=== PATIENT | male | born 1955 | race Caucasian/White ===

== ENCOUNTER 2017-10-06 05:12 | Inpatient (IN) | payer MEDICAID ==
[2017-10-06 05:12] VITALS: BMI 34.1
[2017-10-06] MEDS ORDERED: Nitroglycerin 50mg in D5W 50 MG/250 ML BOTTLE IV SCH (05:20)
--- NOTE | 2017-10-06 05:27 | C.PDOC ---
History Of Present Illness 62 year old male presents to the ER as a tranfer from [place] for admission. Patient with a Hx of pulmonary edema and ESRD. Patient on tridil drip on arrival , no longer dyspneic, no chest pain, not on bipap. Chief Complaint (Nursing): Shortness Of Breath History Per: Patient History/Exam Limitations: no limitations Onset/Duration Of Symptoms: Hrs Current Symptoms Are (Timing): Still Present Associated Symptoms: denies: Chest Pain, Other (Dyspnea) Recent travel outside of the [place]: No Past Medical History Reviewed: Historical Data, Nursing Documentation, Vital Signs Vital Signs: Last Vital Signs Temp 97.8 F 10/06/17 05:23 Pulse 77 10/06/17 05:37 Resp 20 10/06/17 05:37 BP 142/79 10/06/17 05:37 Pulse Ox 93 L 10/06/17 05:37 - Medical History PMH: Anemia, Arthritis (b/l knee), Benign Prostatic Hyperplasia, Cardia Arrhythmia, CHF, HTN, Hypercholesterolemia, Hyperlipidemia, Peripheral Edema, End Stage Renal Disease, Chronic Kidney Disease Surgical History: Coronary Stent (x2) - [facility] (04/23/17) ASSISTANCE WITH RESPIRATORY VENTILATION, <24 HRS, CPAP (10/09/16) DIALYSIS ARTERIOVENOSTOM (08/11/14) HEMODIALYSIS (12/05/14) INSERTION OF ENDOTRACHEAL AIRWAY INTO TRACHEA, VIA OPENING (11/28/16) PERFORMANCE OF URINARY FILTRATION, MULTIPLE (11/28/16) RESPIRATORY VENTILATION, LESS THAN 24 CONSECUTIVE HOURS (11/28/16) [facility] D[facility]UNT (12/05/14) VENOUS CATHETERIZATION FOR RENAL DIALYSIS (12/05/14) Family History: States: Unknown Family Hx - Social History Hx Alcohol Use: No Hx Substance Use: No - Immunization History Hx Tetanus Toxoid Vaccination: No Hx Influenza Vaccination: No Hx Pneumococcal Vaccination: No Review Of Systems Constitutional: Negative for: Fever, Chills Cardiovascular: Negative for: Chest Pain Respiratory: Negative for: Cough, Shortness of Breath Gastrointestinal: Negative for: Nausea, Vomiting, Abdominal Pain Skin: Negative for: Rash Neurological: Negative for: Weakness, Numbness Physical Exam - Physical Exam Appears: Non-toxic Skin: Normal Color, Warm, Dry Head: Atraumatic, Normacephalic Eye(s): bilateral: Normal Inspection Oral Mucosa: Moist Throat: Normal Neck: Normal, Supple Chest: Symmetrical, No Tenderness Cardiovascular: Rhythm Regular Respiratory: Rales (Occasional basilar), No Rhonchi, No Wheezing Gastrointestinal/Abdominal: Soft, No Tenderness Back: No CVA Tenderness Extremity: Normal ROM (x4) Neurological/Psych: Oriented x3, Normal Speech ED Course And Treatment Progress Note: Dr. Diaz, patient's PCP, was notified and will admit patient to her service. Disposition Discussed With Dr.: Demetrius Parkinson Doctor Will See Patient In The: Hospital Counseled Patient/Family Regarding: Diagnosis - Disposition Disposition: HOSPITALIZED Disposition Time: 05:26 Condition: GUARDED - Clinical Impression Clinical Impression: ESRD (end stage renal disease) on dialysis, Pulmonary edema - Scribe Statement The provider has reviewed the documentation as recorded by the Scribe Ramu Booth All medical record entries made by the Scribe were at my direction and personally dictated by me. I have reviewed the chart and agree that the record accurately reflects my personal performance of the history, physical exam, medical decision making, and the department course for this patient. I have also personally directed, reviewed, and agree with the discharge instructions and disposition.
[2017-10-06] MEDS: (Novolin R) Insulin Human Regular 100 units/ml vial SC SCH ×5 (06:46→22:10)
--- NOTE | 2017-10-06 11:17 | CP.PCM.HP ---
History of Present Illness - History of Present Illness History of Present Illness: pt transferedb from [place] to presented with dificulty breathing body swallen pauldeatous allover in ht failiure geting dialysis now Present on Admission - Present on Admission Any Indicators Present on Admission: No Past Patient History - Infectious Disease Hx of Infectious Diseases: None - Past Medical History & Family History Past Medical History?: Yes - Past Social History Smoking Status: Never Smoked - CARDIAC Hx Cardia Arrhythmia: Yes Hx Congestive Heart Failure: Yes Hx Hypercholesterolemia: Yes Hx Hypertension: Yes Hx Peripheral Edema: Yes - PULMONARY Hx Respiratory Disorders: No - NEUROLOGICAL Hx Neurological Disorder: No - HEENT Hx HEENT Problems: No - RENAL Hx Chronic Kidney Disease: Yes - ENDOCRINE/METABOLIC Hx Diabetes Mellitus Type 1: Yes - HEMATOLOGICAL/ONCOLOGICAL Hx Anemia: Yes - INTEGUMENTARY Hx Dermatological Problems: Yes Other/Comment: 8=7-17 LEFT GLUTEAL FOLD HAS A 0.5CM ROUND .CRUSTED WOUND. DRY. LEFT UPPER ARM SHUNT.LEFT DELTOID WITH SKIN DISCOLORATION. - MUSCULOSKELETAL/RHEUMATOLOGICAL Hx Arthritis: Yes (b/l knee) - GASTROINTESTINAL Hx Gastrointestinal Disorders: Yes (CONSTIPATION.) - GENITOURINARY/GYNECOLOGICAL Hx Genitourinary Disorders: (oliguria) Other/Comment: dialysis m/w/f - PSYCHIATRIC Hx Substance Use: No - SURGICAL HISTORY Hx Coronary Stent: Yes (x2) - ANESTHESIA Hx Anesthesia: Yes Hx Anesthesia Reactions: No Hx Malignant Hyperthermia: No Meds Allergies/Adverse Reactions: Allergies Allergy/AdvReac Type Severity Reaction Status Date / Time No Known Allergies Allergy Verified 10/06/17 05:23 Physical Exam - Constitutional Appears: Non-toxic, In Acute Distress - Head Exam Head Exam: ATRAUMATIC - Eye Exam Eye Exam: Normal appearance Pupil Exam: NORMAL ACCOMODATION - ENT Exam ENT Exam: Mucous Membranes Moist - Neck Exam Neck exam: Positive for: Normal Inspection - Respiratory Exam Respiratory Exam: Accessory Muscle Use, Decreased Breath Sounds, Rales - Cardiovascular Exam Cardiovascular Exam: Tachycardia - GI/Abdominal Exam GI & Abdominal Exam: Normal Bowel Sounds - Extremities Exam Extremities exam: Positive for: full ROM, pedal edema - Back Exam Back exam: NORMAL INSPECTION - Neurological Exam Neurological exam: CN II-XII Intact, Normal Gait, Oriented x3 - Psychiatric Exam Psychiatric exam: Normal Mood - Skin Skin Exam: Diaphoretic, Pallor Results - Vital Signs Recent Vital Signs: Last Vital Signs Temp 97.5 F L 10/06/17 08:16 Pulse 68 10/06/17 11:07 Resp 20 10/06/17 11:07 BP 153/80 H 10/06/17 11:07 Pulse Ox 100 10/06/17 10:14 - Labs Labs: Laboratory Results - last 24 hr 10/06/17 05:23 POC Glucose (mg/dL) 352 H Assessment & Plan - Assessment and Plan (Free Text) Assessment: AC EX CHF COPD ESRF ANEAMIA Plan: PER ORDERS - Date & Time Date: 10/06/17 Time: 11:18
--- NOTE | 2017-10-06 12:42 | CP.PCM.CON ---
History of Present Illness - History of Present Illness History of Present Illness: Nephrology Consultation Note: Assessment: critical CHF exacerbation with fluid overload and pneumonia hyperglycemia Diabetic chronic Kidney Disease (E11.22) End stage renal disease (N18.6) dependence on hemodialysis (Z99.2) (MWF) via left AVF Anemia (D64.9), Hyperphosphatemia (E83.39), Secondary Hyperparathyroidism (E21.1 ), HTN (I12.0), DM, CAD s/p CABG, Overweight, CHF with L EF low Plan: Will plan for HD today as MWF schedule. Continue with Nephrovite 1 tab/day. next routine HD tomorrow. last Hb 12.3 hence No KISHAN with HD Continue with phos binders check phos level BP control with meds as ordered. will benefit from ACEI or ARB. will start low dose losartan 25 mg/day. Glycemic control, Dialysis consistent diet, oral fluid and salt restriction Further work up/management as per primary team Dose meds/antibiotics for ESRD status. Avoid fleets enema/magnesium based laxatives. pt needs weight loss, lifestyle modifications, exercise, pt to limit fluid intake. Thanks for allowing me to participate in care of your patient. Please call if any Qs. Dr Renan De Leon Office: [phone] Chief Complaint; SOB reason for consult: ESRD HPI: Pt is a 61 y/o M with hx of ESRD on hemodialysis (MWF/sat) via AVF @ [facility], chronic anemia, hyperphosphatemia, secondary hyperparathyroidism, Diabetes Mellitus, hypertension, CHF presented with complaints of shortness of breath x 1 day and being admitted for CHF exacerbation with pneumonia now feels better at end of HD Subjective: feels better. SOB better. denies nausea/vomitting, chest pain. c/o dry cough. rest all other neg Physical Examination: General Appearance: in no acute respiratory distress. obese appearing male. comfortable coperative Vitals reviewed and noted as below Head; Atraumatic, normocephalic ENT: no ulcer, thrush, rash EYES: Pupils are equal, round and reactive to light accommodation. Eye muscles and extraocular movement intact. Sclera is anicteric. Neck; supple no lymphadenopathy, no thyromegaly or bruit Lungs: Breath sounds bilateral + no wheezing. bilateral bibasal crackles+ Heart: Normal rate. s1s2 normal. No rub or gallop. CABG scar + Extremities: 1+ edema. No varicose veins Neurological: Patient is awake, alert oriented x 3 at this time. no focal defifict Skin: Warm and dry. Normal turgor. No rash. Palpitation: Normal elasticity for age Abdomen: Abdomen is soft. Bowel sounds +. There is no abdominal tenderness, no guarding/rigidity or organomegaly. abdomen is distended, obese appearing Psych: has normal affect and mood. MSK: no joint tenderness or swelling. Digits and nails normal, no deformity : kidney or bladder not palpable Access: AVF Labs/imaging reviewed. Past medical history, past surgical history, family history, social history, allergy reviewed and noted as below Family Hx: no hx of CKD. Non contributory Past Patient History - Infectious Disease Hx of Infectious Diseases: None - Past Medical History & Family History Past Medical History?: Yes - Past Social History Smoking Status: Never Smoked - CARDIAC Hx Cardia Arrhythmia: Yes Hx Congestive Heart Failure: Yes Hx Hypercholesterolemia: Yes Hx Hypertension: Yes Hx Peripheral Edema: Yes - PULMONARY Hx Respiratory Disorders: No - NEUROLOGICAL Hx Neurological Disorder: No - HEENT Hx HEENT Problems: No - RENAL Hx Chronic Kidney Disease: Yes - ENDOCRINE/METABOLIC Hx Diabetes Mellitus Type 1: Yes - HEMATOLOGICAL/ONCOLOGICAL Hx Anemia: Yes - INTEGUMENTARY Hx Dermatological Problems: Yes Other/Comment: 8=7-17 LEFT GLUTEAL FOLD HAS A 0.5CM ROUND .CRUSTED WOUND. DRY. LEFT UPPER ARM SHUNT.LEFT DELTOID WITH SKIN DISCOLORATION. - MUSCULOSKELETAL/RHEUMATOLOGICAL Hx Arthritis: Yes (b/l knee) - GASTROINTESTINAL Hx Gastrointestinal Disorders: Yes (CONSTIPATION.) - GENITOURINARY/GYNECOLOGICAL Hx Genitourinary Disorders: (oliguria) Other/Comment: dialysis m/w/f - PSYCHIATRIC Hx Substance Use: No - SURGICAL HISTORY Hx Coronary Stent: Yes (x2) - ANESTHESIA Hx Anesthesia: Yes Hx Anesthesia Reactions: No Hx Malignant Hyperthermia: No Meds Allergies/Adverse Reactions: Allergies Allergy/AdvReac Type Severity Reaction Status Date / Time No Known Allergies Allergy Verified 10/06/17 05:23 - Medications Medications: Current Medications Insulin Human Regular (Novolin R) 0 unit SC ACHS [facility] PRN Reason: Protocol Last Admin: 10/06/17 11:52 Dose: Not Given Metoprolol Tartrate (Lopressor) 25 mg PO BID [facility] Last Admin: 10/06/17 11:37 Dose: Not Given Results - Vital Signs Recent Vital Signs: Last Vital Signs Temp 97.4 F L 10/06/17 11:46 Pulse 72 10/06/17 12:03 Resp 20 10/06/17 12:03 BP 135/76 10/06/17 12:03 Pulse Ox 100 10/06/17 12:03 - Labs Labs: Laboratory Results - last 24 hr 10/06/17 10/06/17 05:23 11:50 POC Glucose (mg/dL) 352 H 180 H
[2017-10-06] MEDS: cefTRIAXone IV 1 gm in Dextros 50 ML IVPB SCH (18:36)
[2017-10-06] MEDS ORDERED: (Novolin R) Insulin Human Regular 100 units/ml vial SC ONE (23:00)
[2017-10-07] MEDS: Albuterol-Ipratrop 3 mg / 0.5 (3 ml) UD INH SCH ×4 (02:57→20:11)
[2017-10-07] MEDS: (Novolin R) Insulin Human Regular 100 units/ml vial SC SCH ×4 (08:11→22:44)
[2017-10-07] MEDS: Multivitamin Vitamin B Complex (Nephro-Vite) Tab PO SCH (08:26)
--- NOTE | 2017-10-07 09:15 | CP.PCM.PN ---
Subjective - Date & Time of Evaluation Date of Evaluation: 10/07/17 Time of Evaluation: 09:14 - Subjective Subjective: Nephrology Consultation Note: Assessment:Stable CHF exacerbation with fluid overload and pneumonia hyperglycemia Diabetic chronic Kidney Disease (E11.22) End stage renal disease (N18.6) dependence on hemodialysis (Z99.2) (MWF) via left AVF Anemia (D64.9), Hyperphosphatemia (E83.39), Secondary Hyperparathyroidism (E21.1 ), HTN (I12.0), DM, CAD s/p CABG, Overweight, CHF with L EF low Plan: Will plan for HD today as /monday schedule. Continue with Nephrovite 1 tab/ day. last Hb 12.3 hence No KISHAN with HD Continue with phos binders check phos level BP control with meds as ordered. will benefit from ACEI or ARB. will start low dose losartan 25 mg/day. Glycemic control, Dialysis consistent diet, oral fluid and salt restriction Further work up/management as per primary team Dose meds/antibiotics for ESRD status. Avoid fleets enema/magnesium based laxatives. pt needs weight loss, lifestyle modifications, exercise, pt to limit fluid intake. Thanks for allowing me to participate in care of your patient. Please call if any Qs. d/w team Dr Renan De Leon Office: [phone] Chief Complaint; SOB reason for consult: ESRD HPI: Pt is a 61 y/o M with hx of ESRD on hemodialysis (MWF/mon) via AVF @ [facility], chronic anemia, hyperphosphatemia, secondary hyperparathyroidism, Diabetes Mellitus, hypertension, CHF presented with complaints of shortness of breath x 1 day and being admitted for CHF exacerbation with pneumonia now feels better at end of HD Subjective: feels better. SOB better. denies nausea/vomitting, chest pain. c/o dry cough. rest all other neg Physical Examination: General Appearance: in no acute respiratory distress. obese appearing male. comfortable coperative Vitals reviewed and noted as below Head; Atraumatic, normocephalic ENT: no ulcer, thrush, rash EYES: Pupils are equal, round and reactive to light accommodation. Eye muscles and extraocular movement intact. Sclera is anicteric. Neck; supple no lymphadenopathy, no thyromegaly or bruit Lungs: Breath sounds bilateral + no wheezing. bilateral bibasal crackles+ improved Heart: Normal rate. s1s2 normal. No rub or gallop. CABG scar + Extremities: no edema. No varicose veins Neurological: Patient is awake, alert oriented x 3 at this time. no focal defifict Skin: Warm and dry. Normal turgor. No rash. Palpitation: Normal elasticity for age Abdomen: Abdomen is soft. Bowel sounds +. There is no abdominal tenderness, no guarding/rigidity or organomegaly. abdomen is distended, obese appearing Psych: has normal affect and mood. MSK: no joint tenderness or swelling. Digits and nails normal, no deformity : kidney or bladder not palpable Access: AVF Labs/imaging reviewed. Past medical history, past surgical history, family history, social history, allergy reviewed and noted as below Family Hx: no hx of CKD. Non contributory Objective - Vital Signs/Intake and Output Vital Signs (last 24 hours): Temp Pulse Resp BP Pulse Ox 97.5 F L 79 18 123/74 96 10/07/17 07:00 10/07/17 07:00 10/07/17 07:00 10/07/17 07:00 10/07/17 07:00 Intake and Output: 10/07/17 10/07/17 06:59 18:59 Intake Total 210 Output Total 0 Balance 210 - Medications Medications: Current Medications Albuterol/Ipratropium (Duoneb 3 Mg/0.5 Mg (3 Ml) Ud) 3 ml INH RQ6 [facility] Last Admin: 10/07/17 08:45 Dose: 3 ml Aspirin (Ecotrin) 81 mg PO DAILY [facility] Azithromycin (Zithromax) 250 mg PO QPM [facility] PRN Reason: Protocol Stop: 10/11/17 18:01 Last Admin: 10/06/17 18:36 Dose: 250 mg Calcium Acetate (Phoslo) 667 mg PO TIDAC [facility] Last Admin: 10/07/17 08:26 Dose: 667 mg Clopidogrel Bisulfate (Plavix) 75 mg PO DAILY [facility] Furosemide (Lasix) 40 mg PO DAILY [facility] Glimepiride (Amaryl) 4 mg PO BID [facility] Heparin Sodium (Porcine) (Heparin) 2,000 units IVP MWF [facility] Heparin Sodium (Porcine) (Heparin) 2,000 units IVP ONCE ONE Stop: 10/07/17 10:01 Home Med (Atorvastatin [Lipitor]) 1 tab PO HS [facility] Ceftriaxone Sodium (Rocephin Iv 1 Gm Duplex) 50 mls @ 100 mls/hr IVPB QPM [facility] PRN Reason: Protocol Stop: 10/13/17 18:01 Last Admin: 10/06/17 18:36 Dose: 100 mls/hr Insulin Human Regular (Novolin R) 0 unit SC ACHS [facility] PRN Reason: Protocol Last Admin: 10/07/17 08:11 Dose: Not Given Losartan Potassium (Cozaar) 25 mg PO QPM [facility] Last Admin: 10/06/17 17:23 Dose: 25 mg Metoprolol Tartrate (Lopressor) 25 mg PO BID [facility] Last Admin: 10/06/17 17:23 Dose: 25 mg Vitamin B Complex/Vit C/Folic Acid (Nephro-Adonis) 1 tab PO 0800 [facility] Last Admin: 10/07/17 08:26 Dose: 1 tab
--- NOTE | 2017-10-07 12:11 | CP.PCM.PN ---
Subjective - Date & Time of Evaluation Date of Evaluation: 10/07/17 Time of Evaluation: 12:08 - Subjective Subjective: cough chest congesion less sob having dialysis Objective - Vital Signs/Intake and Output Vital Signs (last 24 hours): Temp Pulse Resp BP Pulse Ox 97.8 F 81 16 114/65 96 10/07/17 09:20 10/07/17 11:30 10/07/17 11:30 10/07/17 11:30 10/07/17 11:30 Intake and Output: 10/07/17 10/07/17 06:59 18:59 Intake Total 210 Output Total 0 Balance 210 - Medications Medications: Current Medications Albuterol/Ipratropium (Duoneb 3 Mg/0.5 Mg (3 Ml) Ud) 3 ml INH RQ6 [facility] Last Admin: 10/07/17 08:45 Dose: 3 ml Aspirin (Ecotrin) 81 mg PO DAILY [facility] Azithromycin (Zithromax) 250 mg PO QPM [facility] PRN Reason: Protocol Stop: 10/11/17 18:01 Last Admin: 10/06/17 18:36 Dose: 250 mg Calcium Acetate (Phoslo) 667 mg PO TIDAC [facility] Last Admin: 10/07/17 08:26 Dose: 667 mg Clopidogrel Bisulfate (Plavix) 75 mg PO DAILY [facility] Furosemide (Lasix) 40 mg PO DAILY [facility] Glimepiride (Amaryl) 4 mg PO BID [facility] Heparin Sodium (Porcine) (Heparin) 2,000 units IVP MWF [facility] Home Med (Atorvastatin [Lipitor]) 1 tab PO HS [facility] Ceftriaxone Sodium (Rocephin Iv 1 Gm Duplex) 50 mls @ 100 mls/hr IVPB QPM [facility] PRN Reason: Protocol Stop: 10/13/17 18:01 Last Admin: 10/06/17 18:36 Dose: 100 mls/hr Insulin Human Regular (Novolin R) 0 unit SC ACHS [facility] PRN Reason: Protocol Last Admin: 10/07/17 08:11 Dose: Not Given Losartan Potassium (Cozaar) 25 mg PO QPM [facility] Last Admin: 10/06/17 17:23 Dose: 25 mg Metoprolol Tartrate (Lopressor) 25 mg PO BID [facility] Last Admin: 10/06/17 17:23 Dose: 25 mg Vitamin B Complex/Vit C/Folic Acid (Nephro-Adonis) 1 tab PO 0800 [facility] Last Admin: 10/07/17 08:26 Dose: 1 tab - Constitutional Appears: Non-toxic - Head Exam Head Exam: NORMAL INSPECTION - Eye Exam Eye Exam: Normal appearance Pupil Exam: NORMAL ACCOMODATION - ENT Exam ENT Exam: Mucous Membranes Moist - Neck Exam Neck Exam: Normal Inspection - Respiratory Exam Respiratory Exam: Decreased Breath Sounds, Rales - Cardiovascular Exam Cardiovascular Exam: REGULAR RHYTHM - GI/Abdominal Exam GI & Abdominal Exam: Normal Bowel Sounds - Skin Skin Exam: Normal Color Assessment and Plan - Assessment and Plan (Free Text) Assessment: CHF AC BRONCHITIS DM Plan: CONT PER ORDERS
[2017-10-07] MEDS: cefTRIAXone IV 1 gm in Dextros 50 ML IVPB SCH (17:03)
[2017-10-08] MEDS ORDERED: Insulin Detemir 100 units/ml Vial (Levemir) SC STA (00:47)
[2017-10-08] MEDS: Albuterol-Ipratrop 3 mg / 0.5 (3 ml) UD INH SCH ×4 (01:17→19:46)
[2017-10-08 08:01] LABS: HEPATITIS B SURFACE AG Negative (NEGATIVE)
[2017-10-08] MEDS ORDERED: Bisacodyl 5mg EC Tab PO ONE (08:09)
[2017-10-08 08:18] LABS: HEPATITIS C ANTIBODY NEGATIVE (NEGATIVE)
[2017-10-08] MEDS: Multivitamin Vitamin B Complex (Nephro-Vite) Tab PO SCH (08:22)
[2017-10-08] MEDS: (Novolin R) Insulin Human Regular 100 units/ml vial SC SCH ×4 (08:24→21:45)
[2017-10-08 08:39] LABS: BASO # 0.1 K/uL (0.0-0.2); BASO % 1.1 % (0.0-2.0); EOS # 0.1 K/uL (0.0-0.7); EOS % 1.2 % (0.0-4.0); HEMOGLOBIN 11.8 g/dL (12.0-18.0); LYMPH # 1.8 K/uL (1.0-4.3); LYMPH % 25.6 % (20.0-40.0); MEAN CORPUSCULAR HEMOGLOBIN 28.8 pg (27.0-31.0); MEAN CORPUSCULAR HGB CONC 32.2 g/dL (33.0-37.0); MEAN PLATELET VOLUME 8.5 fL (7.2-11.7); MONO # 0.6 K/uL (0.0-0.8); MONO % 8.1 % (0.0-10.0); NEUT # 4.5 K/uL (1.8-7.0); NRBC % 0.2 % (0.0-2.0); RBC 4.09 Mil/uL (4.40-5.90); RED CELL DISTRIBUTION WIDTH 19.9 % (11.5-14.5); WHITE BLOOD COUNT 7.1 K/uL (4.8-10.8)
[2017-10-08 08:44] LABS: ALB/GLOB RATIO 1.3 (1.0-2.1); ALBUMIN 4.7 g/dL (3.5-5.0); CALCIUM 8.8 mg/dl (8.6-10.4); MEAN CELL VOLUME 89.5 fL (80.0-94.0)
[2017-10-08 09:06] LABS: FREE T4 1.59 ng/dL (0.78-2.19)
--- NOTE | 2017-10-08 09:43 | RAD ---
HISTORY: pneumonia COMPARISON: 11/15/2015 TECHNIQUE: Chest PA and lateral FINDINGS: LUNGS: No active pulmonary disease. PLEURA: No significant pleural effusion identified. No pneumothorax apparent. CARDIOVASCULAR: Cardiomegaly. No evidence of acute, significant cardiovascular disease. OSSEOUS STRUCTURES: No significant abnormalities. VISUALIZED UPPER ABDOMEN: Normal. OTHER FINDINGS: None. IMPRESSION: No active disease. No significant interval change compared to the prior examination(s).
[2017-10-08] MEDS ORDERED: Pneumococcal 23-Valent Vaccine IM ONE (10:00)
--- NOTE | 2017-10-08 10:27 | CP.PCM.PN ---
Subjective - Date & Time of Evaluation Date of Evaluation: 10/08/17 Time of Evaluation: 10:24 - Subjective Subjective: lower abd pain constipation Objective - Vital Signs/Intake and Output Vital Signs (last 24 hours): Temp Pulse Resp BP Pulse Ox 98 F 94 H 18 126/71 95 10/08/17 08:05 10/08/17 09:21 10/08/17 08:05 10/08/17 09:22 10/08/17 08:05 Intake and Output: 10/08/17 10/08/17 06:59 18:59 Intake Total 100 Balance 100 - Medications Medications: Current Medications Albuterol/Ipratropium (Duoneb 3 Mg/0.5 Mg (3 Ml) Ud) 3 ml INH RQ6 [facility] Last Admin: 10/08/17 01:17 Dose: Not Given Aspirin (Ecotrin) 81 mg PO DAILY [facility] Last Admin: 10/08/17 09:22 Dose: 81 mg Azithromycin (Zithromax) 250 mg PO QPM [facility] PRN Reason: Protocol Stop: 10/11/17 18:01 Last Admin: 10/07/17 17:02 Dose: 250 mg Calcium Acetate (Phoslo) 667 mg PO TIDAC [facility] Last Admin: 10/08/17 08:22 Dose: 667 mg Clopidogrel Bisulfate (Plavix) 75 mg PO DAILY [facility] Last Admin: 10/08/17 09:22 Dose: 75 mg Furosemide (Lasix) 40 mg PO DAILY [facility] Last Admin: 10/08/17 09:22 Dose: 40 mg Glimepiride (Amaryl) 4 mg PO BID [facility] Last Admin: 10/08/17 09:22 Dose: 4 mg Heparin Sodium (Porcine) (Heparin) 2,000 units IVP MWF [facility] Ceftriaxone Sodium (Rocephin Iv 1 Gm Duplex) 50 mls @ 100 mls/hr IVPB QPM [facility] PRN Reason: Protocol Stop: 10/13/17 18:01 Last Admin: 10/07/17 17:03 Dose: 100 mls/hr Insulin Human Regular (Novolin R) 0 unit SC ACHS [facility] PRN Reason: Protocol Last Admin: 10/08/17 08:24 Dose: 4 units Losartan Potassium (Cozaar) 25 mg PO QPM [facility] Last Admin: 10/07/17 17:03 Dose: 25 mg Metoprolol Tartrate (Lopressor) 25 mg PO BID [facility] Last Admin: 10/08/17 09:22 Dose: 25 mg Rosuvastatin Calcium (Crestor) 20 mg PO HS [facility] Last Admin: 10/07/17 22:45 Dose: 20 mg Vitamin B Complex/Vit C/Folic Acid (Nephro-Adonis) 1 tab PO 0800 [facility] Last Admin: 10/08/17 08:22 Dose: 1 tab - Labs Labs: 10/08/17 08:24 10/08/17 08:24 - Constitutional Appears: Non-toxic - Head Exam Head Exam: NORMAL INSPECTION - Eye Exam Eye Exam: Normal appearance Pupil Exam: NORMAL ACCOMODATION - ENT Exam ENT Exam: Mucous Membranes Moist - Neck Exam Neck Exam: Full ROM - Respiratory Exam Respiratory Exam: NORMAL BREATHING PATTERN - Cardiovascular Exam Cardiovascular Exam: REGULAR RHYTHM - GI/Abdominal Exam GI & Abdominal Exam: Tenderness, Normal Bowel Sounds Additional comments: lower abd tender - Exam External exam: NORMAL EXTERNAL EXAM - Extremities Exam Extremities Exam: Full ROM - Back Exam Back Exam: NORMAL INSPECTION - Neurological Exam Neurological Exam: Oriented x3 - Psychiatric Exam Psychiatric exam: Normal Mood - Skin Skin Exam: Dry, Normal Color Assessment and Plan - Assessment and Plan (Free Text) Assessment: abd pain constipation chf esrf dm uncontroled Plan: will do ct abd inc insulin
[2017-10-08] MEDS ORDERED: Iohexol 240 (50 ml) PO ONE (11:15)
--- NOTE | 2017-10-08 14:29 | CP.PCM.PN ---
Subjective - Date & Time of Evaluation Date of Evaluation: 10/08/17 Time of Evaluation: 14:28 - Subjective Subjective: Nephrology Consultation Note: Assessment:Stable CHF exacerbation with fluid overload and ? pneumonia hyperglycemia Diabetic chronic Kidney Disease (E11.22) End stage renal disease (N18.6) dependence on hemodialysis (Z99.2) (MWF) via left AVF Anemia (D64.9), Hyperphosphatemia (E83.39), Secondary Hyperparathyroidism (E21.1 ), HTN (I12.0), DM, CAD s/p CABG, Overweight, CHF with L EF low Plan: Will plan for HD as /monday schedule. Continue with Nephrovite 1 tab/day. last Hb 12.3 hence No KISHAN with HD Continue with phos binders check phos level BP control with meds as ordered. will benefit from ACEI or ARB. will start low dose losartan 25 mg/day. Glycemic control, Dialysis consistent diet, oral fluid and salt restriction Further work up/management as per primary team Dose meds/antibiotics for ESRD status. Avoid fleets enema/magnesium based laxatives. pt needs weight loss, lifestyle modifications, exercise, pt to limit fluid intake. repeat CXR wnl, consider d/c planning Thanks for allowing me to participate in care of your patient. Please call if any Qs. had d/w team Dr Renan De Leon Office: [phone] Chief Complaint; SOB reason for consult: ESRD HPI: Pt is a 61 y/o M with hx of ESRD on hemodialysis (MWF/mon) via AVF @ [facility], chronic anemia, hyperphosphatemia, secondary hyperparathyroidism, Diabetes Mellitus, hypertension, CHF presented with complaints of shortness of breath x 1 day and being admitted for CHF exacerbation with pneumonia now feels better at end of HD Subjective: feels better. SOB better. denies nausea/vomitting, chest pain. rest all other neg Physical Examination: General Appearance: in no acute respiratory distress. obese appearing male. comfortable coperative Vitals reviewed and noted as below Head; Atraumatic, normocephalic ENT: no ulcer, thrush, rash EYES: Pupils are equal, round and reactive to light accommodation. Eye muscles and extraocular movement intact. Sclera is anicteric. Neck; supple no lymphadenopathy, no thyromegaly or bruit Lungs: Breath sounds bilateral + no wheezing. bilateral bibasal clear Heart: Normal rate. s1s2 normal. No rub or gallop. CABG scar + Extremities: no edema. No varicose veins Neurological: Patient is awake, alert oriented x 3 at this time. no focal defifict Skin: Warm and dry. Normal turgor. No rash. Palpitation: Normal elasticity for age Abdomen: Abdomen is soft. Bowel sounds +. There is no abdominal tenderness, no guarding/rigidity or organomegaly. abdomen is distended, obese appearing Psych: has normal affect and mood. MSK: no joint tenderness or swelling. Digits and nails normal, no deformity : kidney or bladder not palpable Access: AVF Labs/imaging reviewed. Past medical history, past surgical history, family history, social history, allergy reviewed and noted as below Family Hx: no hx of CKD. Non contributory Objective - Vital Signs/Intake and Output Vital Signs (last 24 hours): Temp Pulse Resp BP Pulse Ox 98 F 94 H 18 126/71 95 10/08/17 08:05 10/08/17 09:21 10/08/17 08:05 10/08/17 09:22 10/08/17 08:05 Intake and Output: 10/08/17 10/08/17 06:59 18:59 Intake Total 100 Balance 100 - Medications Medications: Current Medications Albuterol/Ipratropium (Duoneb 3 Mg/0.5 Mg (3 Ml) Ud) 3 ml INH RQ6 [facility] Last Admin: 10/08/17 13:31 Dose: 3 ml Aspirin (Ecotrin) 81 mg PO DAILY [facility] Last Admin: 10/08/17 09:22 Dose: 81 mg Azithromycin (Zithromax) 250 mg PO QPM [facility] PRN Reason: Protocol Stop: 10/11/17 18:01 Last Admin: 10/07/17 17:02 Dose: 250 mg Calcium Acetate (Phoslo) 667 mg PO TIDAC [facility] Last Admin: 10/08/17 12:47 Dose: 667 mg Clopidogrel Bisulfate (Plavix) 75 mg PO DAILY [facility] Last Admin: 10/08/17 09:22 Dose: 75 mg Furosemide (Lasix) 40 mg PO DAILY [facility] Last Admin: 10/08/17 09:22 Dose: 40 mg Glimepiride (Amaryl) 4 mg PO BID [facility] Last Admin: 10/08/17 09:22 Dose: 4 mg Heparin Sodium (Porcine) (Heparin) 2,000 units IVP MWF [facility] Ceftriaxone Sodium (Rocephin Iv 1 Gm Duplex) 50 mls @ 100 mls/hr IVPB QPM [facility] PRN Reason: Protocol Stop: 10/13/17 18:01 Last Admin: 10/07/17 17:03 Dose: 100 mls/hr Insulin Detemir (Levemir) 14 unit SC [facility] Insulin Human Regular (Novolin R) 0 unit SC ACHS [facility] PRN Reason: Protocol Last Admin: 10/08/17 12:47 Dose: 8 units Losartan Potassium (Cozaar) 25 mg PO QPM [facility] Last Admin: 10/07/17 17:03 Dose: 25 mg Metoprolol Tartrate (Lopressor) 25 mg PO BID [facility] Last Admin: 10/08/17 09:22 Dose: 25 mg Rosuvastatin Calcium (Crestor) 20 mg PO [facility] Last Admin: 10/07/17 22:45 Dose: 20 mg Vitamin B Complex/Vit C/Folic Acid (Nephro-Adonis) 1 tab PO 0800 [facility] Last Admin: 10/08/17 08:22 Dose: 1 tab - Labs Labs: 10/08/17 08:24 10/08/17 08:24
--- NOTE | 2017-10-08 15:48 | CT ---
PROCEDURE: CT Abdomen and Pelvis without intravenous contrast HISTORY: abd pain constipation COMPARISON: None. TECHNIQUE: Without contrast.. Contrast dose: 0 Radiation dose: Total exam DLP = 932.76 mGy-cm. This CT exam was performed using one or more of the following dose reduction techniques: Automated exposure control, adjustment of the mA and/or kV according to patient size, and/or use of iterative reconstruction technique. FINDINGS: LOWER THORAX: Unremarkable. LIVER: Normal size, contour and attenuation. No mass. Punctate calcification in left lobe of liver consistent with old granulomatous disease. No biliary dilatation. GALLBLADDER AND BILE DUCTS: Unremarkable. PANCREAS: Unremarkable. No gross lesion or ductal dilatation. SPLEEN: Unremarkable. ADRENALS: Unremarkable. No mass. KIDNEYS AND URETERS: Moderately atrophic kidneys. Small left renal cortical cyst, 11 mm. No calculus hydronephrosis. VASCULATURE: Unremarkable. No aortic aneurysm. BOWEL: No bowel obstruction. No significant retained feces. No abnormal bowel loops. APPENDIX: Unremarkable. Normal appendix. PERITONEUM: Unremarkable. No free fluid. No free air. LYMPH NODES: Unremarkable. No enlarged lymph nodes. BLADDER: Nondistended REPRODUCTIVE: Normal prostate BONES: No acute fracture. OTHER FINDINGS: None. IMPRESSION: No evidence of bowel obstruction. No significant retained feces. Atrophic kidneys. Minor findings as above.
[2017-10-08] MEDS: cefTRIAXone IV 1 gm in Dextros 50 ML IVPB SCH (17:36)
[2017-10-08] MEDS ORDERED: Insulin Detemir 100 units/ml Vial (Levemir) SC SCH (22:00)
[2017-10-09] MEDS: Albuterol-Ipratrop 3 mg / 0.5 (3 ml) UD INH SCH ×4 (02:14→19:57)
[2017-10-09] MEDS: (Novolin R) Insulin Human Regular 100 units/ml vial SC SCH ×4 (08:30→21:14)
[2017-10-09] MEDS: Multivitamin Vitamin B Complex (Nephro-Vite) Tab PO SCH (08:32)
--- NOTE | 2017-10-09 13:16 | CP.PCM.PN ---
Subjective - Date & Time of Evaluation Date of Evaluation: 10/09/17 Time of Evaluation: 13:16 - Subjective Subjective: Nephrology Consultation Note: Assessment:Stable CHF exacerbation with fluid overload and ? pneumonia hyperglycemia Diabetic chronic Kidney Disease (E11.22) End stage renal disease (N18.6) dependence on hemodialysis (Z99.2) (MWF) via left AVF Anemia (D64.9), Hyperphosphatemia (E83.39), Secondary Hyperparathyroidism (E21.1 ), HTN (I12.0), DM, CAD s/p CABG, Overweight, CHF with L EF low Plan: Will plan for HD today as /monday schedule. Continue with Nephrovite 1 tab/ day. last Hb 12.3 hence No KISHAN with HD Continue with phos binders check phos level BP control with meds as ordered. will benefit from ACEI or ARB. will start low dose losartan 25 mg/day. Glycemic control, Dialysis consistent diet, oral fluid and salt restriction Further work up/management as per primary team Dose meds/antibiotics for ESRD status. Avoid fleets enema/magnesium based laxatives. pt needs weight loss, lifestyle modifications, exercise, pt to limit fluid intake. repeat CXR wnl, consider d/c planning today Thanks for allowing me to participate in care of your patient. Please call if any Qs. had d/w team Dr Renan De Leon Office: [phone] Chief Complaint; SOB reason for consult: ESRD HPI: Pt is a 61 y/o M with hx of ESRD on hemodialysis (MWF/mon) via AVF @ [facility], chronic anemia, hyperphosphatemia, secondary hyperparathyroidism, Diabetes Mellitus, hypertension, CHF presented with complaints of shortness of breath x 1 day and being admitted for CHF exacerbation with pneumonia now feels better at end of HD Subjective: feels better. SOB better. denies nausea/vomitting, chest pain. rest all other neg Physical Examination: General Appearance: in no acute respiratory distress. obese appearing male. comfortable coperative Vitals reviewed and noted as below Head; Atraumatic, normocephalic ENT: no ulcer, thrush, rash EYES: Pupils are equal, round and reactive to light accommodation. Eye muscles and extraocular movement intact. Sclera is anicteric. Neck; supple no lymphadenopathy, no thyromegaly or bruit Lungs: Breath sounds bilateral + no wheezing. bilateral bibasal clear Heart: Normal rate. s1s2 normal. No rub or gallop. CABG scar + Extremities: no edema. No varicose veins Neurological: Patient is awake, alert oriented x 3 at this time. no focal defifict Skin: Warm and dry. Normal turgor. No rash. Palpitation: Normal elasticity for age Abdomen: Abdomen is soft. Bowel sounds +. There is no abdominal tenderness, no guarding/rigidity or organomegaly. abdomen is distended, obese appearing Psych: has normal affect and mood. MSK: no joint tenderness or swelling. Digits and nails normal, no deformity : kidney or bladder not palpable Access: AVF Labs/imaging reviewed. Past medical history, past surgical history, family history, social history, allergy reviewed and noted as below Family Hx: no hx of CKD. Non contributory Objective - Vital Signs/Intake and Output Vital Signs (last 24 hours): Temp Pulse Resp BP Pulse Ox 98.1 F 80 20 152/79 H 95 10/09/17 07:00 10/09/17 11:00 10/09/17 07:00 10/09/17 11:00 10/09/17 07:00 Intake and Output: 10/09/17 10/09/17 06:59 18:59 Intake Total 100 Balance 100 - Medications Medications: Current Medications Albuterol/Ipratropium (Duoneb 3 Mg/0.5 Mg (3 Ml) Ud) 3 ml INH RQ6 [facility] Last Admin: 10/09/17 13:15 Dose: Not Given Aspirin (Ecotrin) 81 mg PO DAILY [facility] Last Admin: 10/09/17 11:00 Dose: 81 mg Azithromycin (Zithromax) 250 mg PO QPM [facility] PRN Reason: Protocol Stop: 10/11/17 18:01 Last Admin: 10/08/17 17:35 Dose: 250 mg Calcium Acetate (Phoslo) 667 mg PO TIDAC [facility] Last Admin: 10/09/17 12:30 Dose: 667 mg Clopidogrel Bisulfate (Plavix) 75 mg PO DAILY [facility] Last Admin: 10/09/17 11:00 Dose: 75 mg Furosemide (Lasix) 40 mg PO DAILY [facility] Last Admin: 10/09/17 11:00 Dose: 40 mg Glimepiride (Amaryl) 4 mg PO BID [facility] Last Admin: 10/09/17 11:00 Dose: 4 mg Heparin Sodium (Porcine) (Heparin) 2,000 units IVP [facility] Ceftriaxone Sodium (Rocephin Iv 1 Gm Duplex) 50 mls @ 100 mls/hr IVPB QPM [facility] PRN Reason: Protocol Stop: 10/13/17 18:01 Last Admin: 10/08/17 17:36 Dose: 100 mls/hr Insulin Detemir (Levemir) 14 unit SC HS [facility] Last Admin: 10/08/17 21:44 Dose: 14 units Insulin Human Regular (Novolin R) 0 unit SC ACHS [facility] PRN Reason: Protocol Last Admin: 10/09/17 12:33 Dose: 8 units Losartan Potassium (Cozaar) 25 mg PO QPM [facility] Last Admin: 10/08/17 19:00 Dose: 25 mg Metoprolol Tartrate (Lopressor) 25 mg PO BID [facility] Last Admin: 10/09/17 11:00 Dose: Not Given Rosuvastatin Calcium (Crestor) 20 mg PO HS [facility] Last Admin: 10/08/17 21:44 Dose: 20 mg Vitamin B Complex/Vit C/Folic Acid (Nephro-Adonis) 1 tab PO 0800 [facility] Last Admin: 10/09/17 08:32 Dose: 1 tab - Labs Labs: 10/08/17 08:24 10/08/17 08:24
--- NOTE | 2017-10-09 16:24 | CP.PCM.PN ---
Subjective - Date & Time of Evaluation Date of Evaluation: 10/09/17 Time of Evaluation: 16:22 - Subjective Subjective: pt bs 333 less sob Objective - Vital Signs/Intake and Output Vital Signs (last 24 hours): Temp Pulse Resp BP Pulse Ox 98.3 F 72 18 130/69 95 10/09/17 15:10 10/09/17 15:10 10/09/17 15:10 10/09/17 16:10 10/09/17 15:10 Intake and Output: 10/09/17 10/09/17 06:59 18:59 Intake Total 100 400 Balance 100 400 - Medications Medications: Current Medications Albuterol/Ipratropium (Duoneb 3 Mg/0.5 Mg (3 Ml) Ud) 3 ml INH RQ6 [facility] Last Admin: 10/09/17 13:15 Dose: Not Given Aspirin (Ecotrin) 81 mg PO DAILY [facility] Last Admin: 10/09/17 11:00 Dose: 81 mg Azithromycin (Zithromax) 250 mg PO QPM [facility] PRN Reason: Protocol Stop: 10/11/17 18:01 Last Admin: 10/08/17 17:35 Dose: 250 mg Calcium Acetate (Phoslo) 667 mg PO TIDAC [facility] Last Admin: 10/09/17 12:30 Dose: 667 mg Clopidogrel Bisulfate (Plavix) 75 mg PO DAILY [facility] Last Admin: 10/09/17 11:00 Dose: 75 mg Furosemide (Lasix) 40 mg PO DAILY [facility] Last Admin: 10/09/17 11:00 Dose: 40 mg Glimepiride (Amaryl) 4 mg PO BID [facility] Last Admin: 10/09/17 11:00 Dose: 4 mg Heparin Sodium (Porcine) (Heparin) 2,000 units IVP MWF [facility] Last Admin: 10/09/17 15:07 Dose: 2,000 units Ceftriaxone Sodium (Rocephin Iv 1 Gm Duplex) 50 mls @ 100 mls/hr IVPB QPM [facility] PRN Reason: Protocol Stop: 10/13/17 18:01 Last Admin: 10/08/17 17:36 Dose: 100 mls/hr Insulin Detemir (Levemir) 18 unit SC HS [facility] Insulin Human Regular (Novolin R) 0 unit SC ACHS [facility] PRN Reason: Protocol Last Admin: 10/09/17 12:33 Dose: 8 units Losartan Potassium (Cozaar) 25 mg PO QPM [facility] Last Admin: 10/08/17 19:00 Dose: 25 mg Metoprolol Tartrate (Lopressor) 25 mg PO BID [facility] Last Admin: 10/09/17 11:00 Dose: Not Given Rosuvastatin Calcium (Crestor) 20 mg PO HS [facility] Last Admin: 10/08/17 21:44 Dose: 20 mg Vitamin B Complex/Vit C/Folic Acid (Nephro-Adonis) 1 tab PO 0800 [facility] Last Admin: 10/09/17 08:32 Dose: 1 tab - Labs Labs: 10/08/17 08:24 10/08/17 08:24 - Constitutional Appears: Non-toxic - Head Exam Head Exam: ATRAUMATIC - Eye Exam Eye Exam: Normal appearance Pupil Exam: NORMAL ACCOMODATION - ENT Exam ENT Exam: Normal Exam - Neck Exam Neck Exam: Normal Inspection - Respiratory Exam Respiratory Exam: NORMAL BREATHING PATTERN - Cardiovascular Exam Cardiovascular Exam: REGULAR RHYTHM - GI/Abdominal Exam GI & Abdominal Exam: Normal Bowel Sounds - Rectal Exam Rectal Exam: NORMAL INSPECTION - Exam Exam: NORMAL INSPECTION - Extremities Exam Extremities Exam: Full ROM - Back Exam Back Exam: CVA tenderness (L) - Neurological Exam Neurological Exam: Alert, Awake, Oriented x3 - Psychiatric Exam Psychiatric exam: Normal Mood - Skin Skin Exam: Intact Assessment and Plan - Assessment and Plan (Free Text) Assessment: uncontroled dmid chf esrf Plan: increase insulin
[2017-10-09] MEDS: cefTRIAXone IV 1 gm in Dextros 50 ML IVPB SCH (19:47)
[2017-10-09] MEDS ORDERED: Insulin Detemir 100 units/ml Vial (Levemir) SC SCH (22:00)
[2017-10-10] MEDS: Albuterol-Ipratrop 3 mg / 0.5 (3 ml) UD INH SCH ×4 (01:22→19:31)
[2017-10-10 07:19] LABS: BASO # 0.1 K/uL (0.0-0.2); BASO % 1.1 % (0.0-2.0); EOS # 0.1 K/uL (0.0-0.7); HEMOGLOBIN 11.4 g/dL (12.0-18.0); LYMPH # 1.3 K/uL (1.0-4.3); LYMPH % 25.3 % (20.0-40.0); MEAN CELL VOLUME 88.9 fL (80.0-94.0); MEAN CORPUSCULAR HEMOGLOBIN 29.2 pg (27.0-31.0); MEAN CORPUSCULAR HGB CONC 32.9 g/dL (33.0-37.0); MEAN PLATELET VOLUME 8.4 fL (7.2-11.7); MONO # 0.7 K/uL (0.0-0.8); MONO % 13.8 % (0.0-10.0); NEUT % 57.8 % (50.0-75.0); NRBC % 0.1 % (0.0-2.0); RBC 3.91 Mil/uL (4.40-5.90); RED CELL DISTRIBUTION WIDTH 20.7 % (11.5-14.5); WHITE BLOOD COUNT 5.1 K/uL (4.8-10.8)
[2017-10-10 08:13] LABS: CALCIUM 8.6 mg/dl (8.6-10.4)
[2017-10-10] MEDS: (Novolin R) Insulin Human Regular 100 units/ml vial SC SCH ×4 (08:15→21:40)
[2017-10-10] MEDS: Multivitamin Vitamin B Complex (Nephro-Vite) Tab PO SCH (08:19)
--- NOTE | 2017-10-10 10:49 | CP.PCM.PN ---
Subjective - Date & Time of Evaluation Date of Evaluation: 10/10/17 Time of Evaluation: 10:47 - Subjective Subjective: bs still hi Objective - Vital Signs/Intake and Output Vital Signs (last 24 hours): Temp Pulse Resp BP Pulse Ox 98.1 F 86 20 104/69 98 10/10/17 07:00 10/10/17 07:00 10/10/17 07:00 10/10/17 10:30 10/10/17 07:00 Intake and Output: 10/10/17 10/10/17 06:59 18:59 Intake Total 290 Balance 290 - Medications Medications: Current Medications Albuterol/Ipratropium (Duoneb 3 Mg/0.5 Mg (3 Ml) Ud) 3 ml INH RQ6 [facility] Last Admin: 10/10/17 07:51 Dose: 3 ml Aspirin (Ecotrin) 81 mg PO DAILY [facility] Last Admin: 10/10/17 10:25 Dose: 81 mg Calcium Acetate (Phoslo) 667 mg PO TIDAC [facility] Last Admin: 10/10/17 08:19 Dose: 667 mg Clopidogrel Bisulfate (Plavix) 75 mg PO DAILY [facility] Last Admin: 10/10/17 10:25 Dose: 75 mg Furosemide (Lasix) 40 mg PO DAILY [facility] Last Admin: 10/10/17 10:30 Dose: 40 mg Glimepiride (Amaryl) 4 mg PO BID [facility] Last Admin: 10/10/17 10:25 Dose: 4 mg Heparin Sodium (Porcine) (Heparin) 2,000 units IVP MWF [facility] Last Admin: 10/09/17 15:07 Dose: 2,000 units Ceftriaxone Sodium (Rocephin Iv 1 Gm Duplex) 50 mls @ 100 mls/hr IVPB QPM [facility] PRN Reason: Protocol Stop: 10/13/17 18:01 Last Admin: 10/09/17 19:47 Dose: 100 mls/hr Insulin Detemir (Levemir) 22 unit SC HS [facility] Insulin Human Regular (Novolin R) 0 unit SC ACHS [facility] PRN Reason: Protocol Last Admin: 10/10/17 08:15 Dose: 6 units Losartan Potassium (Cozaar) 25 mg PO QPM [facility] Last Admin: 10/09/17 19:47 Dose: 25 mg Metoprolol Tartrate (Lopressor) 25 mg PO BID [facility] Last Admin: 10/10/17 10:29 Dose: Not Given Rosuvastatin Calcium (Crestor) 20 mg PO HS [facility] Last Admin: 10/09/17 21:04 Dose: 20 mg Vitamin B Complex/Vit C/Folic Acid (Nephro-Adonis) 1 tab PO 0800 [facility] Last Admin: 10/10/17 08:19 Dose: 1 tab - Labs Labs: 10/10/17 06:57 10/10/17 06:57 - Constitutional Appears: Non-toxic - Head Exam Head Exam: NORMAL INSPECTION - Eye Exam Eye Exam: Normal appearance Pupil Exam: NORMAL ACCOMODATION - ENT Exam ENT Exam: Mucous Membranes Moist - Neck Exam Neck Exam: Normal Inspection - Respiratory Exam Respiratory Exam: NORMAL BREATHING PATTERN - Cardiovascular Exam Cardiovascular Exam: REGULAR RHYTHM - GI/Abdominal Exam GI & Abdominal Exam: Normal Bowel Sounds - Exam Exam: NORMAL INSPECTION - Extremities Exam Extremities Exam: Normal Capillary Refill - Back Exam Back Exam: NORMAL INSPECTION - Neurological Exam Neurological Exam: Oriented x3 - Psychiatric Exam Psychiatric exam: Normal Mood - Skin Skin Exam: Normal Color Assessment and Plan - Assessment and Plan (Free Text) Assessment: uncontroled dmid ESRF Plan: INCREASE INS
--- NOTE | 2017-10-10 14:38 | CP.PCM.PN ---
Subjective - Date & Time of Evaluation Date of Evaluation: 10/10/17 Time of Evaluation: 14:38 - Subjective Subjective: Nephrology Consultation Note: Assessment:Stable CHF exacerbation with fluid overload and ? pneumonia hyperglycemia Diabetic chronic Kidney Disease (E11.22) End stage renal disease (N18.6) dependence on hemodialysis (Z99.2) (MWF) via left AVF Anemia (D64.9), Hyperphosphatemia (E83.39), Secondary Hyperparathyroidism (E21.1 ), HTN (I12.0), DM, CAD s/p CABG, Overweight, CHF with L EF low Plan: Will plan for HD tomorrow as F/monday schedule. Continue with Nephrovite 1 tab/day. last Hb 11.4 hence No KISHAN with HD Continue with phos binders check phos level BP control with meds as ordered. will benefit from ACEI or ARB. continue with low dose losartan 25 mg/day. Glycemic control, Dialysis consistent diet, oral fluid and salt restriction Further work up/management as per primary team Dose meds/antibiotics for ESRD status. Avoid fleets enema/magnesium based laxatives. pt needs weight loss, lifestyle modifications, exercise, pt to limit fluid intake. Thanks for allowing me to participate in care of your patient. Please call if any Qs. had d/w team Dr Renan De Leon Office: [phone] Chief Complaint; SOB reason for consult: ESRD HPI: Pt is a 61 y/o M with hx of ESRD on hemodialysis (MWF/sat) via AVF @ [facility], chronic anemia, hyperphosphatemia, secondary hyperparathyroidism, Diabetes Mellitus, hypertension, CHF presented with complaints of shortness of breath x 1 day and being admitted for CHF exacerbation with pneumonia now feels better at end of HD Subjective: feels better. SOB better. denies nausea/vomitting, chest pain. rest all other neg Physical Examination: General Appearance: in no acute respiratory distress. obese appearing male. comfortable cooperative Vitals reviewed and noted as below Head; Atraumatic, normocephalic ENT: no ulcer, thrush, rash EYES: Pupils are equal, round and reactive to light accommodation. Eye muscles and extraocular movement intact. Sclera is anicteric. Neck; supple no lymphadenopathy, no thyromegaly or bruit Lungs: Breath sounds bilateral + no wheezing. bilateral bibasal clear Heart: Normal rate. s1s2 normal. No rub or gallop. CABG scar + Extremities: no edema. No varicose veins Neurological: Patient is awake, alert oriented x 3 at this time. no focal defifict Skin: Warm and dry. Normal turgor. No rash. Palpitation: Normal elasticity for age Abdomen: Abdomen is soft. Bowel sounds +. There is no abdominal tenderness, no guarding/rigidity or organomegaly. abdomen is distended, obese appearing Psych: has normal affect and mood. MSK: no joint tenderness or swelling. Digits and nails normal, no deformity : kidney or bladder not palpable Access: AVF Labs/imaging reviewed. Past medical history, past surgical history, family history, social history, allergy reviewed and noted as below Family Hx: no hx of CKD. Non contributory Objective - Vital Signs/Intake and Output Vital Signs (last 24 hours): Temp Pulse Resp BP Pulse Ox 98.1 F 86 20 104/69 98 10/10/17 07:00 10/10/17 07:00 10/10/17 07:00 10/10/17 10:30 10/10/17 07:00 Intake and Output: 10/10/17 10/10/17 06:59 18:59 Intake Total 290 Balance 290 - Medications Medications: Current Medications Albuterol/Ipratropium (Duoneb 3 Mg/0.5 Mg (3 Ml) Ud) 3 ml INH RQ6 [facility] Last Admin: 10/10/17 13:50 Dose: 3 ml Aspirin (Ecotrin) 81 mg PO DAILY [facility] Last Admin: 10/10/17 10:25 Dose: 81 mg Calcium Acetate (Phoslo) 667 mg PO TIDAC [facility] Last Admin: 10/10/17 12:15 Dose: 667 mg Clopidogrel Bisulfate (Plavix) 75 mg PO DAILY [facility] Last Admin: 10/10/17 10:25 Dose: 75 mg Furosemide (Lasix) 40 mg PO DAILY [facility] Last Admin: 10/10/17 10:30 Dose: 40 mg Glimepiride (Amaryl) 4 mg PO BID [facility] Last Admin: 10/10/17 10:25 Dose: 4 mg Heparin Sodium (Porcine) (Heparin) 2,000 units IVP MWF [facility] Last Admin: 10/09/17 15:07 Dose: 2,000 units Ceftriaxone Sodium (Rocephin Iv 1 Gm Duplex) 50 mls @ 100 mls/hr IVPB QPM [facility] PRN Reason: Protocol Stop: 10/13/17 18:01 Last Admin: 10/09/17 19:47 Dose: 100 mls/hr Insulin Detemir (Levemir) 22 unit SC HS [facility] Insulin Human Regular (Novolin R) 0 unit SC ACHS [facility] PRN Reason: Protocol Last Admin: 10/10/17 12:01 Dose: 12 units Losartan Potassium (Cozaar) 25 mg PO QPM [facility] Last Admin: 10/09/17 19:47 Dose: 25 mg Metoprolol Tartrate (Lopressor) 25 mg PO BID [facility] Last Admin: 10/10/17 10:29 Dose: Not Given Rosuvastatin Calcium (Crestor) 20 mg PO HS [facility] Last Admin: 10/09/17 21:04 Dose: 20 mg Vitamin B Complex/Vit C/Folic Acid (Nephro-Adonis) 1 tab PO 0800 [facility] Last Admin: 10/10/17 08:19 Dose: 1 tab - Labs Labs: 10/10/17 06:57 10/10/17 06:57
[2017-10-10] MEDS: cefTRIAXone IV 1 gm in Dextros 50 ML IVPB SCH (17:40)
[2017-10-10] MEDS ORDERED: Insulin Detemir 100 units/ml Vial (Levemir) SC SCH (22:00)
[2017-10-11] MEDS: Albuterol-Ipratrop 3 mg / 0.5 (3 ml) UD INH SCH ×3 (01:26→13:57)
[2017-10-11] MEDS: (Novolin R) Insulin Human Regular 100 units/ml vial SC SCH ×4 (08:25→17:56)
[2017-10-11] MEDS: Multivitamin Vitamin B Complex (Nephro-Vite) Tab PO SCH (08:25)
--- NOTE | 2017-10-11 11:11 | CP.PCM.PN ---
Subjective - Date & Time of Evaluation Date of Evaluation: 10/11/17 Time of Evaluation: 11:10 - Subjective Subjective: Nephrology Consultation Note: Assessment:Stable CHF exacerbation with fluid overload and ? pneumonia hyperglycemia Diabetic chronic Kidney Disease (E11.22) End stage renal disease (N18.6) dependence on hemodialysis (Z99.2) (MWF) via left AVF Anemia (D64.9), Hyperphosphatemia (E83.39), Secondary Hyperparathyroidism (E21.1 ), HTN (I12.0), DM, CAD s/p CABG, Overweight, CHF with L EF low Plan: Will plan for HD today as /monday schedule. Continue with Nephrovite 1 tab/ day. last Hb 11.4 hence No KISHAN with HD Continue with phos binders check phos level BP control with meds as ordered. will benefit from ACEI or ARB. continue with low dose losartan 25 mg/day. Glycemic control, Dialysis consistent diet, oral fluid and salt restriction Further work up/management as per primary team Dose meds/antibiotics for ESRD status. Avoid fleets enema/magnesium based laxatives. pt needs weight loss, lifestyle modifications, exercise, pt to limit fluid intake. Thanks for allowing me to participate in care of your patient. Please call if any Qs. had d/w team Dr Renan De Leon Office: [phone] Chief Complaint; SOB reason for consult: ESRD HPI: Pt is a 61 y/o M with hx of ESRD on hemodialysis (MWF/sat) via AVF @ [facility], chronic anemia, hyperphosphatemia, secondary hyperparathyroidism, Diabetes Mellitus, hypertension, CHF presented with complaints of shortness of breath x 1 day and being admitted for CHF exacerbation with pneumonia now feels better at end of HD Subjective: feels better. SOB better. denies nausea/vomitting, chest pain. rest all other neg Physical Examination: seen on HD General Appearance: in no acute respiratory distress. obese appearing male. comfortable cooperative Vitals reviewed and noted as below Head; Atraumatic, normocephalic ENT: no ulcer, thrush, rash EYES: Pupils are equal, round and reactive to light accommodation. Eye muscles and extraocular movement intact. Sclera is anicteric. Neck; supple no lymphadenopathy, no thyromegaly or bruit Lungs: Breath sounds bilateral + no wheezing. bilateral bibasal clear Heart: Normal rate. s1s2 normal. No rub or gallop. CABG scar + Extremities: no edema. No varicose veins Neurological: Patient is awake, alert oriented x 3 at this time. no focal defifict Skin: Warm and dry. Normal turgor. No rash. Palpitation: Normal elasticity for age Abdomen: Abdomen is soft. Bowel sounds +. There is no abdominal tenderness, no guarding/rigidity or organomegaly. abdomen is distended, obese appearing Psych: has normal affect and mood. MSK: no joint tenderness or swelling. Digits and nails normal, no deformity : kidney or bladder not palpable Access: AVF Labs/imaging reviewed. Past medical history, past surgical history, family history, social history, allergy reviewed and noted as below Family Hx: no hx of CKD. Non contributory Objective - Vital Signs/Intake and Output Vital Signs (last 24 hours): Temp Pulse Resp BP Pulse Ox 97.1 F L 69 18 134/69 98 10/11/17 09:40 10/11/17 09:40 10/11/17 09:40 10/11/17 09:40 10/11/17 09:27 - Medications Medications: Current Medications Albuterol/Ipratropium (Duoneb 3 Mg/0.5 Mg (3 Ml) Ud) 3 ml INH RQ6 [facility] Last Admin: 10/11/17 07:49 Dose: 3 ml Aspirin (Ecotrin) 81 mg PO DAILY [facility] Last Admin: 10/10/17 10:25 Dose: 81 mg Calcium Acetate (Phoslo) 667 mg PO TIDAC [facility] Last Admin: 10/11/17 08:25 Dose: 667 mg Clopidogrel Bisulfate (Plavix) 75 mg PO DAILY [facility] Last Admin: 10/10/17 10:25 Dose: 75 mg Furosemide (Lasix) 40 mg PO DAILY [facility] Last Admin: 10/10/17 10:30 Dose: 40 mg Glimepiride (Amaryl) 4 mg PO BID [facility] Last Admin: 10/11/17 10:44 Dose: Not Given Heparin Sodium (Porcine) (Heparin) 2,000 units IVP MWF [facility] Last Admin: 10/09/17 15:07 Dose: 2,000 units Ceftriaxone Sodium (Rocephin Iv 1 Gm Duplex) 50 mls @ 100 mls/hr IVPB QPM [facility] PRN Reason: Protocol Stop: 10/13/17 18:01 Last Admin: 10/10/17 17:40 Dose: 100 mls/hr Insulin Detemir (Levemir) 26 unit SC HS [facility] Insulin Human Regular (Novolin R) 0 unit SC ACHS [facility] PRN Reason: Protocol Last Admin: 10/11/17 08:25 Dose: 4 units Losartan Potassium (Cozaar) 25 mg PO QPM [facility] Last Admin: 10/10/17 17:42 Dose: 25 mg Metoprolol Tartrate (Lopressor) 25 mg PO BID [facility] Last Admin: 10/11/17 10:44 Dose: Not Given Rosuvastatin Calcium (Crestor) 20 mg PO HS [facility] Last Admin: 10/10/17 21:41 Dose: 20 mg Vitamin B Complex/Vit C/Folic Acid (Nephro-Adonis) 1 tab PO 0800 [facility] Last Admin: 10/11/17 08:25 Dose: 1 tab - Labs Labs: 10/10/17 06:57 10/10/17 06:57
--- NOTE | 2017-10-11 11:20 | CP.PCM.PN ---
Subjective - Date & Time of Evaluation Date of Evaluation: 10/11/17 Time of Evaluation: 11:17 - Subjective Subjective: feels beter no sob bs improving no cough lung cleare Objective - Vital Signs/Intake and Output Vital Signs (last 24 hours): Temp Pulse Resp BP Pulse Ox 97.1 F L 69 18 134/69 98 10/11/17 09:40 10/11/17 09:40 10/11/17 09:40 10/11/17 09:40 10/11/17 09:27 - Medications Medications: Current Medications Albuterol/Ipratropium (Duoneb 3 Mg/0.5 Mg (3 Ml) Ud) 3 ml INH RQ6 [facility] [place] Last Admin: 10/11/17 07:49 Dose: 3 ml Aspirin (Ecotrin) 81 mg PO DAILY [facility] Last Admin: 10/10/17 10:25 Dose: 81 mg Calcium Acetate (Phoslo) 667 mg PO TIDAC [facility] [place] Last Admin: 10/11/17 08:25 Dose: 667 mg Clopidogrel Bisulfate (Plavix) 75 mg PO DAILY [facility] [place] Last Admin: 10/10/17 10:25 Dose: 75 mg Furosemide (Lasix) 40 mg PO DAILY [facility] [place] Last Admin: 10/10/17 10:30 Dose: 40 mg Glimepiride (Amaryl) 4 mg PO BID [facility] [place] Last Admin: 10/11/17 10:44 Dose: Not Given Heparin Sodium (Porcine) (Heparin) 2,000 units IVP MWF [facility] [place] Last Admin: 10/09/17 15:07 Dose: 2,000 units Ceftriaxone Sodium (Rocephin Iv 1 Gm Duplex) 50 mls @ 100 mls/hr IVPB QPM [facility] PRN Reason: Protocol Stop: 10/13/17 18:01 Last Admin: 10/10/17 17:40 Dose: 100 mls/hr Insulin Detemir (Levemir) 26 unit SC HS [facility] Insulin Human Regular (Novolin R) 0 unit SC ACHS [facility] [place] PRN Reason: Protocol Last Admin: 10/11/17 08:25 Dose: 4 units Losartan Potassium (Cozaar) 25 mg PO QPM [facility] [place] Last Admin: 10/10/17 17:42 Dose: 25 mg Metoprolol Tartrate (Lopressor) 25 mg PO BID [facility] [place] Last Admin: 10/11/17 10:44 Dose: Not Given Rosuvastatin Calcium (Crestor) 20 mg PO HS [facility] Last Admin: 10/10/17 21:41 Dose: 20 mg Vitamin B Complex/Vit C/Folic Acid (Nephro-Adonis) 1 tab PO 0800 [facility] Last Admin: 10/11/17 08:25 Dose: 1 tab - Labs Labs: 10/10/17 06:57 10/10/17 06:57 - Constitutional Appears: Non-toxic - Head Exam Head Exam: NORMAL INSPECTION - Eye Exam Eye Exam: Normal appearance Pupil Exam: NORMAL ACCOMODATION - ENT Exam ENT Exam: Normal Exam - Neck Exam Neck Exam: Full ROM - Respiratory Exam Respiratory Exam: Decreased Breath Sounds, NORMAL BREATHING PATTERN - Cardiovascular Exam Cardiovascular Exam: REGULAR RHYTHM - GI/Abdominal Exam GI & Abdominal Exam: Normal Bowel Sounds - Rectal Exam Rectal Exam: Deferred - Exam Exam: NORMAL INSPECTION - Extremities Exam Extremities Exam: Normal Inspection - Back Exam Back Exam: NORMAL INSPECTION - Neurological Exam Neurological Exam: Alert, Normal Gait, Oriented x3 - Psychiatric Exam Psychiatric exam: Normal Affect - Skin Skin Exam: Normal Color Assessment and Plan - Assessment and Plan (Free Text) Assessment: ac chf ESRF HYPERLIPEADEAMIA DMID Plan: D/C [facility]
[2017-10-11 13:30] VITALS: RESP 20; O2SAT 95
[2017-10-11 16:28] VITALS: PULSE 80
[2017-10-11 16:38] VITALS: TEMP 98.1
--- NOTE | 2017-10-11 17:41 | CP.PCM.PN ---
Subjective - Date & Time of Evaluation Date of Evaluation: 10/11/17 Time of Evaluation: 16:00 Objective - Vital Signs/Intake and Output Vital Signs (last 24 hours): Temp Pulse Resp BP Pulse Ox 98.1 F 80 20 118/66 95 10/11/17 15:05 10/11/17 16:24 10/11/17 15:05 10/11/17 15:05 10/11/17 15:05 Intake and Output: 10/11/17 10/11/17 06:59 18:59 Intake Total 400 Balance 400 - Medications Medications: Current Medications Albuterol/Ipratropium (Duoneb 3 Mg/0.5 Mg (3 Ml) Ud) 3 ml INH RQ6 [facility] Last Admin: 10/11/17 13:57 Dose: Not Given Aspirin (Ecotrin) 81 mg PO DAILY [facility] Last Admin: 10/11/17 13:38 Dose: 81 mg Calcium Acetate (Phoslo) 667 mg PO TIDAC [facility] Last Admin: 10/11/17 13:37 Dose: 667 mg Clopidogrel Bisulfate (Plavix) 75 mg PO DAILY [facility] Last Admin: 10/11/17 13:38 Dose: 75 mg Furosemide (Lasix) 40 mg PO DAILY [facility] Last Admin: 10/11/17 13:38 Dose: 40 mg Glimepiride (Amaryl) 4 mg PO BID [facility] Last Admin: 10/11/17 10:44 Dose: Not Given Heparin Sodium (Porcine) (Heparin) 2,000 units IVP MWF [facility] Last Admin: 10/11/17 12:26 Dose: 2,000 units Ceftriaxone Sodium (Rocephin Iv 1 Gm Duplex) 50 mls @ 100 mls/hr IVPB QPM [facility] PRN Reason: Protocol Stop: 10/13/17 18:01 Last Admin: 10/10/17 17:40 Dose: 100 mls/hr Insulin Detemir (Levemir) 26 unit SC HS [facility] Insulin Human Regular (Novolin R) 0 unit SC ACHS [facility] PRN Reason: Protocol Last Admin: 10/11/17 13:40 Dose: 2 units Losartan Potassium (Cozaar) 25 mg PO QPM [facility] Last Admin: 10/10/17 17:42 Dose: 25 mg Metoprolol Tartrate (Lopressor) 25 mg PO BID [facility] Last Admin: 06/20/18 10:44 Dose: Not Given Rosuvastatin Calcium (Crestor) 5 mg PO HS [facility] Vitamin B Complex/Vit C/Folic Acid (Nephro-Adonis) 1 tab PO 0800 [facility] Last Admin: 10/11/17 08:25 Dose: 1 tab - Labs Labs: 10/10/17 06:57 10/10/17 06:57
[2017-10-11 18:03] VITALS: BP 106/67
[2017-10-11] MEDS: cefTRIAXone IV 1 gm in Dextros 50 ML IVPB SCH (18:04)
[2017-10-11] MEDS ORDERED: Insulin Detemir 100 units/ml Vial (Levemir) SC SCH (22:00)
== END 2017-10-11 18:56 | disposition home or self-care (01) | DRG 544 ==
LOC: C.ER 05:12 → C.9E 05:39 → C.9I 05:56 → C.9E 08:35 → C.6T 08:55 → C.9E 08:59 → C.6T 09:06
PROVIDERS: ADMIT Internal Medicine; ATTEND Internal Medicine
PROC: 5A1D70Z Performance of Urinary Filtration, Intermittent, Less than 6 Hours Per Day (ICD-10-PCS; principal; 2017-10-07)
DX: I13.2 Hypertensive heart and chronic kidney disease with heart failure and with stage 5 chronic kidney disease, or end stage renal disease (principal); J18.9 Pneumonia, unspecified organism; E11.65 Type 2 diabetes mellitus with hyperglycemia; E11.22 Type 2 diabetes mellitus with diabetic chronic kidney disease; I50.9 Heart failure, unspecified; N18.6 End stage renal disease; J44.0 Chronic obstructive pulmonary disease with (acute) lower respiratory infection; D64.9 Anemia, unspecified; Z79.4 Long term (current) use of insulin; Z99.2 Dependence on renal dialysis; E78.00 Pure hypercholesterolemia, unspecified; E66.3 Overweight; I25.10 Atherosclerotic heart disease of native coronary artery without angina pectoris; N40.0 Benign prostatic hyperplasia without lower urinary tract symptoms; Z95.1 Presence of aortocoronary bypass graft; E83.39 Other disorders of phosphorus metabolism; N25.81 Secondary hyperparathyroidism of renal origin